=== PATIENT | male | born 1955 | race Caucasian/White ===

== ENCOUNTER → 2022-05-26 | Outpatient (CLI) | payer MEDICARE | LOC: KOH-I 09:58 | DX: M54.6 Pain in thoracic spine (principal); R06.02 Shortness of breath; M50.90 Cervical disc disorder, unspecified, unspecified cervical region; M47.812 Spondylosis without myelopathy or radiculopathy, cervical region; M47.814 Spondylosis without myelopathy or radiculopathy, thoracic region | CPT/HCPCS: 71046; 72040; 72070 ==